=== PATIENT | female | born 1995 | race Caucasian/White ===

== ENCOUNTER 2022-11-24 19:10 | Inpatient (IN) ==
[2022-11-24] MEDS ORDERED: OXYTOCIN 30 UNITS/500 ML BAG IV PRN ×2 (20:51)
[2022-11-24] MEDS ORDERED: LIDOCAINE 1% LOCAL 20 ML VIAL INFIL PRN (20:51)
--- NOTE | 2022-11-24 20:57 | History & Physical Report ---
Date of Service November 24, 2022 Assessment & Plan (1) Supervision of normal first : Plan: Admit to L&D. EFM/toco. Labs. She'd like to ambulate, see if contractions increase before starting pitocin. She is willing to start pitocin if ctx do not increase. History of Present Illness Chief Complaint: contractions, leaking Primary Care Provider: NO PCP 27yo @ 38 07/07, came to L&D with leaking fluid and contractions. +FM, no vaginal bleeding. Allergies Allergy/AdvReac Type Severity Reaction Status Date / Time No Known Allergies Allergy Verified 11/23/22 10:57 Home Medications Medication Instructions Recorded Confirmed Type acetaminophen [Tylenol] PO PRN Headache 09/19/22 11/23/22 History prenat.vits,lupillo,cxv-[id number]-qqnuk 1 tab PO DAILY 09/19/22 11/23/22 History breast pump #1 ea 11/02/22 11/23/22 Rx Patient History Medical History Hx of migraines Varicella vaccination Surgical History No history of previous surgery Family History Mother Hypothyroid Denies family history of Ovarian cancer Breast cancer Colorectal cancer Social History Smoking Status: Never smoker Second Hand Exposure: No; Do You Dip or Chew Tobacco: No; Tobacco Cessation Education Requested by Patient: No Hx Alcohol Use: No Hx Substance Use: No Preferred Language: Vietnamese Communication Ability: Effective 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 Beliefs That Will Affect Care: None marital status: marital status details: Hernesto Chun (31) [phone] Current Living Situation: Spouse Current Living Situation Comment: Lives with SpouseHernesto current occupational status: student current occupation: grad student Other Information That Helps Us Care for You: No Feels Safe at Home: Yes Safety Concerns: Feels Safe At This Time Assistive Devices: None Review of Systems All systems reviewed & are unremarkable except as noted in HPI & below Physical Exam Physical Exam: FHT Cat 1 [place] Q 4 SVE 4/90/-1 Constitutional: WD/WN, vitals as above Respiratory: normal respiratory effort, lungs clear to auscultation no respiratory distress Cardiovascular: Rate/Rhythm: regular rate and regular rhythm Gastrointestinal (Abdomen): Inspection/Auscultation: abdomen normal to inspection Percussion/Palpation: abdomen soft; abdomen nontender Gravid. No s/s chorio or abruption. Skin: no rashes, warm and dry Psychiatric: A+Ox3, euthymic affect Results & Data Vital Signs (Past 12 Hours) Vital Signs Temp Pulse Resp BP 11/24/22 19:32 79 149/80 H 11/24/22 19:37 36.5 C 18 Coding Level of Care Code None Diagnoses Supervision of normal first Z34.00
[2022-11-24 21:27] LABS: Hematocrit (blood only) 36.8 % (37.0-47.0); Hemoglobin 12.7 g/dl (12.0-16.0); Mean Corpuscular Hemoglobin 30.8 pg (25.0-34.0); Mean Corpuscular Hgb Conc 34.5 g/dL (32.0-36.0); Mean Corpuscular Volume 89.1 fL (80.0-100.0); Mean Platelet Volume 10.1 fL (9.4-12.4); Platelet Count 196 K/uL (130-400); RDW Coefficient of Variation 12.7 % (11.5-14.5); RDW Standard Deviation 41.3 fL (36.4-46.3); Red Blood Count 4.13 M/uL (4.20-5.40); White Blood Count 9.42 K/ul (4.8-10.8)
[2022-11-24 21:36] LABS: Albumin Globulin Ratio 1.1 (0.9-2); Albumin Level 3.3 gm/dl (3.4-5.0); BUN Creatinine Ratio 14.8 (10-20); Bilirubin,Total 0.3 mg/dl (0.2-1.0); Calcium 8.6 mg/dl (8.6-10.3); Creatinine Clr Calc Pharmacy 138.4 ml/min; Est GFR (African American) 147.8 ml/min; Est GFR (Non-African American) 127.5 ml/min; Globulin 3.1 gm/dl (2.5-4.0); Potassium 3.7 mmol/L (3.5-5.1); Total Protein 6.4 gm/dl (6.0-8.3)
[2022-11-24] MEDS: LACTATED RINGER'S 1,000 ML IV PRN (23:15)
[2022-11-25] MEDS ORDERED: BUPIVACAINE 0.25% PF 30 ML VIAL ONE (00:13)
[2022-11-25] MEDS ORDERED: LIDOCAINE 2%/EPINEPHRINE 1:200,000 20 ML PF ONE (00:13)
[2022-11-25] MEDS ORDERED: ePHEDrine sulfate 50 MG/ML AMP ONE (00:13)
[2022-11-25] MEDS ORDERED: fentaNYL citrate PF 100 MCG/2 ML VIAL ONE (00:13)
[2022-11-25] MEDS ORDERED: SODIUM CHLORIDE 0.9% PF INJ 10 ML VIAL ONE (00:13)
[2022-11-25] MEDS ORDERED: fentaNYL 2MCG/ML ROPIVACAINE 1.25MG/ML 100 ML BAG EPI ONE (00:14)
[2022-11-25] MEDS: LACTATED RINGER'S 1,000 ML IV PRN (00:55)
--- NOTE | 2022-11-25 01:02 | Anesthesiology Consultation ---
Date of Service November 25, 2022 Assessment & Plan Chart Review Chart Review: Acceptable Risk for Labor Epidural Consults Requested none History Height/Weight Height: 5 ft 2.99 in Weight: 63.957 kg Allergies Allergy/AdvReac Type Severity Reaction Status Date / Time No Known Allergies Allergy Verified 11/23/22 10:57 Medications Home Medications Medication Instructions Recorded Confirmed Last Taken acetaminophen 325 mg capsule 1,000 mg PO QID PRN Headache 11/24/22 11/24/22 11/21/22 (Tylenol) 1000 [id number]-[id number]-[id number] 1 mg 1 tab PO ONCE 11/24/22 11/24/22 11/23/22 tablet 1 Active Medications Generic Name Dose Route Start Last Admin Trade Name Freq PRN Reason Stop Dose Admin Oxytocin 30 units in 500 mls @ 1 mls/hr 11/24/22 20:51 11/24/22 23:28 Pitocin IV 11/26/22 20:50 0.06 units/hr .Q24H PRN 1 mls/hr Labor Induction/Augmentation Administration Protocol 0.06 UNITS/HR Lactated Ringer's 1,000 mls @ 125 mls/hr 11/24/22 20:51 11/25/22 00:55 Lr IV 11/26/22 20:50 125 mls/hr .Q8H PRN Administration L&D Protocol Protocol Past Medical History Medical History Hx of migraines Varicella vaccination Past Family History Family History Mother Hypothyroid Denies family history of Ovarian cancer Breast cancer Colorectal cancer Past Surgical History Surgical History No history of previous surgery Social History Smoking Status: Never smoker Do You Dip or Chew Tobacco: No Hx Alcohol Use: No Hx Substance Use: No Physical Exam Vital Signs Last Vital Signs Temp 36.7 C 11/24/22 23:31 Pulse 88 11/25/22 00:58 Resp 20 11/24/22 21:30 BP 119/57 L 11/25/22 00:55 Pulse Ox 96 11/25/22 00:58 Testing Laboratory Results 11/24/22 21:01 11/24/22 21:01
[2022-11-25] MEDS ORDERED: fentaNYL citrate PF 100 MCG/2 ML VIAL EPI PRN (01:07)
[2022-11-25] MEDS ORDERED: LIDOCAINE 2% MPF LOCAL 5 ML VIAL EPI PRN (01:07)
[2022-11-25] MEDS ORDERED: NALOXONE HCL 0.4 MG/1 ML VIAL/CARP IV PRN (01:07)
[2022-11-25] MEDS ORDERED: fentaNYL citrate PF 100 MCG/2 ML VIAL EPI STA (01:07)
[2022-11-25] MEDS ORDERED: LIDOCAINE 2%/EPINEPHRINE 1:200,000 20 ML PF EPI STA (01:07)
[2022-11-25] MEDS ORDERED: NALOXONE HCL 1 MG in SODIUM CHLORIDE 0.9% 1000ML 1,000 ML IV PRN (01:07)
[2022-11-25] MEDS ORDERED: ePHEDrine sulfate 50 MG/ML AMP IV PRN (01:07)
[2022-11-25] MEDS ORDERED: diphenhydrAMINE 50 MG/ML VIAL IV PRN (01:07)
[2022-11-25] MEDS ORDERED: NALBUPHINE HCL INJ 10 MG/ML AMP IV PRN (01:07)
[2022-11-25] MEDS ORDERED: SODIUM CHLORIDE 0.9% PF INJ 10 ML VIAL EPI PRN (01:07)
[2022-11-25] MEDS ORDERED: BUPIVACAINE 0.25% PF 30 ML VIAL EPI STA (01:07)
[2022-11-25] MEDS ORDERED: BUPIVACAINE 0.25% PF 30 ML VIAL EPI PRN (01:07)
[2022-11-25] MEDS ORDERED: SODIUM CHLORIDE 0.9% PF INJ 10 ML VIAL EPI STA (01:07)
[2022-11-25] MEDS ORDERED: fentaNYL 2MCG/ML ROPIVACAINE 1.25MG/ML 100 ML BAG EPI PRN (01:07)
[2022-11-25] MEDS ORDERED: ROPIVACAINE 0.5% PF 5 MG/ML 20 ML VIAL EPI PRN (01:07)
--- NOTE | 2022-11-25 02:50 | Labor Progress Brief Note ---
Date of Service November 25, 2022 Subjective Comfortable with epidural. FHT Cat 1 [place] Q 2 SVE 6/100/+1, bloody show - suspect this is related to rapid cervical dilation, as cervix was 4cm per RN exam prior to epidural. Will continue to monitor, vitals and baby FHT normal. Anticipate . Assessment & Plan Admission and Anticipated Discharge Date Admission Date: November 24, 2022 Results & Data Vital Signs (Past 12 Hours) Vital Signs Temp Pulse Resp BP Pulse Ox 11/25/22 02:43 82 96 11/25/22 02:38 78 97 11/25/22 02:34 75 117/66 11/25/22 02:33 77 97 11/25/22 02:28 86 97 11/25/22 02:23 78 96 11/25/22 02:18 88 96 11/25/22 02:19 79 119/65 11/25/22 02:13 89 96 11/25/22 02:08 78 97 11/25/22 02:04 78 116/60 11/25/22 02:03 80 96 11/25/22 02:00 18 11/25/22 02:00 18 11/25/22 01:58 80 97 11/25/22 01:53 81 96 11/25/22 01:48 90 96 11/25/22 01:49 84 94 11/25/22 01:46 90 125/60 11/25/22 01:43 84 96 11/25/22 01:38 88 96 11/25/22 01:30 20 11/25/22 01:30 36.5 C 20 11/25/22 01:33 89 96 11/25/22 01:34 89 124/61 94 11/25/22 01:28 88 96 11/25/22 01:24 86 131/59 L 94 11/25/22 01:23 85 95 11/25/22 01:19 87 94 11/25/22 01:18 90 95 11/25/22 01:15 86 111/58 L 11/25/22 01:13 87 95 11/25/22 01:12 89 94 11/25/22 01:08 86 96 11/25/22 01:06 93 H 116/57 L 11/25/22 01:03 94 11/25/22 01:03 88 11/25/22 01:03 91 H 94 11/25/22 01:01 90 18 119/57 L 11/25/22 00:58 88 96 11/25/22 00:55 90 119/57 L 94 11/25/22 00:53 88 116/56 L 96 11/25/22 00:51 79 120/58 L 11/25/22 00:49 80 123/60 11/25/22 00:48 82 97 11/25/22 00:47 77 129/73 11/25/22 00:45 81 131/72 11/25/22 00:43 97 11/25/22 00:43 76 11/25/22 00:43 86 132/72 11/25/22 00:41 87 139/72 11/25/22 00:38 85 97 11/25/22 00:39 86 133/72 11/25/22 00:37 88 137/73 11/25/22 00:35 91 H 140/77 11/25/22 00:33 96 11/25/22 00:33 98 H 11/25/22 00:33 96 H 135/72 11/25/22 00:28 102 H 97 11/25/22 00:29 106 H 146/76 H 11/25/22 00:22 103 H 99 11/25/22 00:17 99 H 98 11/25/22 00:16 98 H 136/84 11/25/22 00:12 84 98 11/25/22 00:07 93 H 98 11/24/22 23:46 86 146/78 H 11/24/22 23:31 36.7 C 11/24/22 23:15 85 136/85 11/24/22 22:10 75 137/78 11/24/22 21:30 20 11/24/22 21:30 36.6 C 20 11/24/22 19:33 18 11/24/22 19:33 36.5 C 18 11/24/22 19:32 79 149/80 H 11/24/22 19:37 36.5 C 18 Coding Level of Care Code None Diagnoses
--- NOTE | 2022-11-25 05:13 | Delivery Summary ---
Vaginal Delivery Summary Date of Service November 25, 2022 Vaginal Delivery Summary and 1st Degree LAC Vaginal Delivery Summary: Pre-delivery diagnoses: 27yo @ 40 2/7, spontaneous labor Post-delivery diagnoses: same Procedure: spontaneous vaginal delivery Surgeon: Jessica Naqvi DO Complications: none Findings: Viable . Apgars: 8/9 . Weight pending, please see nursery records Estimated blood loss: 300ml Description of delivery: The patient progressed to complete with epidural anesthesia. She then began to push. She spontaneously vaginally delivered a viable from the cephalic presentation. The head delivered in CARLOS position. No nuchal. The anterior shoulder delivered, followed by the posterior shoulder, followed by the body. The baby was placed on mother's abdomen and a spontaneous cry was heard. Delayed cord clamping was employed, and the cord was doubly clamped and cut. Cord blood was obtained. The placenta was delivered spontaneously intact with a 3-vessel cord. The uterus and vagina were swept of clots and debris. IV pitocin was given. The uterus became firm. The cervix, vagina, and perineum were inspected and bilateral labial lacerations and a 1st degree perineal laceration were noted. These were repaired with 3-0 vicryl in interrupted sutures. Excellent hemostasis was observed. The mother and baby are recovering in stable and good condition in the room. Sponge needle and instrument counts were correct x 2. Jessica Naqvi DO [facility] Vaginal Delivery Charge Vaginal Delivery Codes: 82205 global code for the antepartum, delivery, and post- Delivery Type Details: and 1st Degree LAC
[2022-11-25] MEDS ORDERED: DIPHTHERIA/TETANUS/PERTUSSIS Vaccine (Tdap, Age 7+yrs) 0.5mL SYR/VL IM ONE (05:39)
[2022-11-25] MEDS ORDERED: BENZOCAINE 20% AER SPR 82.5 GM CAN EXT PRN (05:39)
[2022-11-25] MEDS ORDERED: HYDROCORTISONE ACETATE 25 MG SUPP PR PRN (05:39)
[2022-11-25] MEDS ORDERED: OXYTOCIN 30 UNITS/500 ML BAG IV PRN (05:39)
[2022-11-25] MEDS ORDERED: oxyCODONE/ACETAMINOPHEN 5mg/325mg TAB PO PRN (05:39)
--- NOTE | 2022-11-25 08:25 | Anesthesia Procedure Note ---
Date of Service November 25, 2022 Anesthesia Post Epidural Note Vital Signs Vital Signs: Temp Pulse Resp BP Pulse Ox 97.9 F 94 H 18 128/75 97 11/25/22 07:51 11/25/22 07:51 11/25/22 07:51 11/25/22 07:51 11/25/22 07:51 Pain Intensity Bilateral Abdomen: Pain Intensity: 3 Notes Mental Status: alert / awake / arousable and participated in evaluation Nausea / Vomiting: adequately controlled Pain: adequately controlled Airway Patency, RR, SpO2: stable & adequate BP & HR: stable & adequate Hydration State: stable & adequate Neuraxial Anesthesia: was administered and sensory block is resolving Anesthetic Complications: no major complications apparent and Pt Satisfied with anesthetic care Epidural: Removed without complications and With tip intact
[2022-11-25] MEDS: PRENATAL VITAMIN 1 TAB PO SCH (09:41)
[2022-11-25] MEDS: DOCUSATE SODIUM 100 MG CAP PO SCH ×2 (09:41→21:02)
[2022-11-25] MEDS: IBUPROFEN 600 MG TAB PO PRN (18:38)
[2022-11-25] MEDS: ACETAMINOPHEN 325 MG TAB PO PRN (21:05)
[2022-11-26] MEDS: ACETAMINOPHEN 325 MG TAB PO PRN ×2 (03:52→11:01)
[2022-11-26] MEDS: IBUPROFEN 600 MG TAB PO PRN (06:48)
[2022-11-26 07:28] LABS: Hematocrit (blood only) 30.5 % (37.0-47.0); Hemoglobin 10.6 g/dl (12.0-16.0)
--- NOTE | 2022-11-26 08:20 | Obstetrical Progress Note ---
Date of Service November 26, 2022 Assessment & Plan (1) Supervision of normal first : PPD#1 doing well, no concerns, desires DC home. Reviewed instructions, she is to followup in office in 6w. Subjective Ambulation: ambulating normally Voiding: no voiding problems Diet Tolerance:: regular diet Lochia:: Moderate Review of Systems All systems reviewed & are unremarkable except as noted in HPI & below Physical Exam Constitutional WD/WN, vitals as above no acute distress Respiratory normal respiratory effort Cardiovascular Rate/Rhythm: regular rate and regular rhythm Gastrointestinal (Abdomen) Inspection/Auscultation: abdomen normal to inspection; abdomen not distended Percussion/Palpation: abdomen soft Genitourinary OB Exam Abdomen: + fundal height Fundus: + firm; not tender Results & Data Vital Signs (Past 12 Hours) Vital Signs Temp Pulse Pulse Resp BP Pulse Ox O2 Del Method 11/26/22 07:58 36.8 C 81 18 11/26/22 03:20 36.5 C 77 18 116/78 98 Room Air 11/25/22 23:30 Room Air 11/25/22 23:30 36.5 C 82 18 116/74 97 Room Air
[2022-11-26] MEDS: DOCUSATE SODIUM 100 MG CAP PO SCH (08:31)
[2022-11-26] MEDS: PRENATAL VITAMIN 1 TAB PO SCH (08:31)
[2022-11-26] MEDS ORDERED: bisacodyL 5 MG TABEC PO SCH (20:00)
[2022-11-27] MEDS ORDERED: bisacodyL 10 MG SUPP PR PRN (05:39)
== END 2022-11-26 14:15 | disposition home or self-care (01) | DRG 807 ==
LOC: OPB 19:10 → 4S1 19:12 → 4E2 11-25 08:10